=== PATIENT | male | born 1965 | race Caucasian/White ===

== ENCOUNTER 2024-06-02 10:04 | Emergency (ER) | payer BC ==
[2024-06-02] MEDS ORDERED: Sodium Chloride 0.9% 10 ML Syringe FLUSH PRN (11:02)
[2024-06-02] MEDS ORDERED: Sodium Chloride 0.9% 2.5 ML Syringe FLUSH PRN (11:02)
[2024-06-02 11:20] LABS: BASOPHILS ABSOLUTE AUTO 0.02 K/uL (0.00-0.20); BASOPHILS PERCENT AUTO 0.2 % (0.0-1.0); HEMATOCRIT 35.8 % (42.0-52.0); HEMOGLOBIN 13.1 g/dL (14.0-18.0); IMMATURE GRAN ABSOLUTE AUTO 0.05 K/uL (0.00-0.05); IMMATURE GRAN PERCENT AUTO 0.4 % (0.0-0.4); LYMPHOCYTES ABSOLUTE AUTO 0.38 K/uL (1.00-4.80); LYMPHOCYTES PERCENT AUTO 3.2 % (24.0-44.0); MEAN CORPUSCULAR HEMOGLOBIN 32.9 pg (28.0-32.0); MEAN CORPUSCULAR HGB CONC 36.6 g/dL (32.0-36.0); MEAN CORPUSCULAR VOLUME 89.9 fL (83.0-99.0); MEAN PLATELET VOLUME 9.9 fL (9.4-12.4); MONOCYTES ABSOLUTE AUTO 0.16 K/uL (0.00-0.80); MONOCYTES PERCENT AUTO 1.4 % (0.0-8.0); NEUTROPHILS PERCENT AUTO 94.8 % (41.0-71.0); PLATELET COUNT,PLT 195 K/uL (150-400); RED BLOOD CELL COUNT 3.98 M/uL (4.52-5.90); WHITE BLOOD CELL COUNT,WBC 11.71 K/uL (3.9-11.3)
[2024-06-02 11:51] LABS: A/G RATIO 1.4 (0.9-1.6); BILIRUBIN TOTAL 1.6 mg/dL (0.2-1.0); CALCIUM 9.1 mg/dL (8.5-10.1); CARBON DIOXIDE,CO2 22.3 mmol/L (21.0-32.0); CREATININE 1.1 mg/dL (0.8-1.3); EST CRCL DRUG DOSING (CG) 69.95 mL/min; POTASSIUM,K 3.5 mmol/L (3.5-5.1); PROTEIN TOTAL,TP 6.8 g/dL (6.4-8.2)
[2024-06-02] MEDS: Iopamidol 755 MG/ML 500 ML Multipack Bottle IVPUSH STA (14:02)
[2024-06-02 15:39] VITALS: BP 124/64; PULSE 56
== END 2024-06-02 15:38 | disposition home or self-care (01) ==
LOC: MW.ED 10:04
DX: R06.02 Shortness of breath (principal); I10 Essential (primary) hypertension; Z88.0 Allergy status to penicillin; Z79.899 Other long term (current) drug therapy; Z75.8 Other problems related to medical facilities and other health care
CPT/HCPCS: 36415; 71045; 71275; 80053; 83690; 83880; 84484; 85025; 85379; 93005; 99285; Q9967

== ENCOUNTER 2024-07-26 10:04 | Day surgery (SDC) | payer BC ==
[2024-07-26] MEDS ORDERED: propofoL 500 MG/50 ML 50 ML ONE (10:17)
[2024-07-26] MEDS: Lactated Ringers 1,000 ML IV SCH (10:28)
[2024-07-26] MEDS ORDERED: ePHEDrine 50 MG/ML SDV ONE (11:36)
[2024-07-26] MEDS ORDERED: Ondansetron 4 MG/2 ML SDV ONE (11:41)
[2024-07-26] MEDS ORDERED: Propofol 200 MG/20 ML SDV ONE (11:48)
[2024-07-26] MEDS ORDERED: Lactated Ringers 1,000 ML IV SCH (12:15)
[2024-07-26 13:09] VITALS: BP 120/74; PULSE 55
== END 2024-07-26 13:00 | disposition home or self-care (01) ==
LOC: MW.SDS 10:04
PROVIDERS: ATTEND Surgery
DX: Z12.11 Encounter for screening for malignant neoplasm of colon (principal); K57.30 Diverticulosis of large intestine without perforation or abscess without bleeding; I10 Essential (primary) hypertension; Z79.899 Other long term (current) drug therapy; Z88.0 Allergy status to penicillin; F17.200 Nicotine dependence, unspecified, uncomplicated
CPT/HCPCS: 45378; J2405; J2704; J7120; 00812; J3490